=== PATIENT | male | born 1960 | race Caucasian/White ===

== ENCOUNTER 2025-03-14 19:13 | Inpatient (IN) | payer MEDICARE, BC ==
[~2025-03-14] VITALS: Ht 157.5 cm; Wt 54.9 kg
[2025-03-14] MEDS ORDERED: CEFEPIME 1 GM VIAL ONE (19:32)
[2025-03-14] MEDS ORDERED: ACETAMINOPHEN ES 500 MG TABLET ONE (19:32)
[2025-03-14] MEDS ORDERED: VANCOMYCIN 1 GM /D5W 250 ML PB IV ONE (19:32)
[2025-03-14] MEDS: IV NS 0.9% 1,000 ML BAG IV ONE (19:41)
[2025-03-14] MEDS: CEFEPIME 1 GM in IV D5W 50 ML IV ONE (19:41)
[2025-03-14] MEDS: ACETAMINOPHEN ES 500 MG TABLET PO ONE (19:42)
[2025-03-14 19:51] LABS: PLATELET COUNT (AUTO) 306 K/uL (150-450); RED BLOOD CELL COUNT(AUTO) 4.76 MIL/uL (4.5-6.0); RED CELL DISTRIBUTION WIDTH 15.1 % (11.5-15.0); WHITE BLOOD COUNT (AUTO) 17.9 K/uL (4.3-11.0)
[2025-03-14 19:58] LABS: CALCIUM, SERUM 8.9 mg/dL (8.5-10.1); CREATININE 0.9 mg/dL (0.6-1.3); SODIUM SERUM 134 mmol/L (136-145); UREA NITROGEN, BLOOD 16 mg/dL (7-18)
[2025-03-14 20:02] LABS: INR 0.96 (0.91-1.10)
[2025-03-14 20:03] LABS: ASPARTATE AMINOTRANSFERASE 24 U/L (15-37); TOTAL PROTEIN, SERUM 8.3 g/dL (6.4-8.2)
[2025-03-14 20:12] LABS: LACTIC ACID 0.9 mmol/L (0.4-2.0)
[2025-03-14] MEDS: VANCOMYCIN 1 GM in IV D5W 250 ML IV ONE (20:12)
[2025-03-14] MEDS ORDERED: ACETAMINOPHEN 325 MG TABLET PO PRN (21:30)
[2025-03-14] MEDS ORDERED: Z GUARD REMEDY 4 OZ OINT TP PRN (21:30)
[2025-03-14] MEDS ORDERED: DOSING PER PHARMACY-VANCOMYCIN IV XX PRN (21:30)
[2025-03-14] MEDS ORDERED: ENOXAPARIN SODIUM 40 MG/0.4 ML DISP.SYRIN SQ SCH (21:30)
[2025-03-14] MEDS ORDERED: IV NS 0.9% 1,000 ML IV PRN (21:30)
[2025-03-14] MEDS ORDERED: ONDANSETRON HCL/PF 4 MG/2 ML VIAL IVP PRN (21:30)
[2025-03-14] MEDS ORDERED: ZOLPIDEM TARTRATE 5 MG TABLET PO PRN (21:30)
[2025-03-14] MEDS ORDERED: MAGNESIUM HYDROXIDE 30 ML UDC PO PRN (21:30)
[2025-03-14] MEDS ORDERED: DOSING PER PHARMACY-CEFEPIME IVPB XX PRN (21:30)
[2025-03-14] MEDS ORDERED: MAG HYDROX/AL HYDROX/SIMETH 30 ML UDC PO PRN (21:30)
[2025-03-14 21:37] LABS: APPEARANCE,URINE CLEAR (CLEAR); BLOOD, URINE NEGATIVE Ery/uL (NEGATIVE); LEUKOCYTE ESTERASE ,URINE NEGATIVE (NEGATIVE); NITRITE, URINE NEGATIVE (NEGATIVE); UGLUCOSE NEGATIVE (NEGATIVE)
[2025-03-14 21:45] VITALS: BP 110/80; TEMP 99.5; O2SAT 98
[2025-03-15] MEDS ORDERED: CEFEPIME 1 GM in IV D5W 50 ML IV ONE (02:30)
[2025-03-15] MEDS ORDERED: PANTOPRAZOLE 40 MG TABLET.DR PO SCH (07:30)
== END 2025-03-14 21:08 | disposition left against medical advice (07) | DRG 871 ==
LOC: ER 19:15 → TELE 21:08 → OBSER 21:33 → TELE 21:33
PROVIDERS: ADMIT Student in an Organized Health Care Education/Training Program; ATTEND Student in an Organized Health Care Education/Training Program
DX: A41.9 Sepsis, unspecified organism (principal); J18.9 Pneumonia, unspecified organism; Z20.822 Contact with and (suspected) exposure to COVID-19
CPT/HCPCS: 36415; 70450-TC; 71045-TC; 80048-TC; 80076-TC; 82962-TC; 83605-TC; 84484-TC; 85025-TC; 85730-TC; 87040-TC; 87086-TC; A4223; G0378; J0692; J3370; J7030; J7040; J7050; J7060